=== PATIENT | female | born 1950 | race Caucasian/White ===

== ENCOUNTER → 2023-03-14 08:59 | Outpatient (REF) | payer MEDICARE, SELFPAY ==
[2023-03-14 11:50] LABS: % Basophils 0.6 % (0-2); % Eosinophils 1.5 % (0-6); % Immature Granulocytes 0.3 % (0-0.5); % Lymphocytes 23.5 % (20.5-51.1); % Monocytes 6.5 % (1.7-9.3); % Neutrophils 67.6 % (42.2-75.2); Absolute Eosinophils 0.1 10^3/uL (0-0.7); Absolute Lymphocytes 1.6 10^3/uL (1.2-3.4); Absolute Monocytes 0.4 10^3/uL (0.1-0.6); Absolute Neutrophils 4.6 10^3/uL (1.4-6.5); Hematocrit 39.9 % (37.0-47.0); Mean Corp Hgb Conc. 32.6 g/dL (33.0-37.0); Mean Corpuscular Hgb 27.5 pg (27.0-31.0); Mean Corpuscular Volume 84.4 fL (81.0-99.0); Nucleated Red Blood Cells % 0 %; Platelet Count 174 10^3/uL (130-400); Red Blood Cell Count 4.73 10^6/uL (4.20-5.40); Red Cell Dist. Width 14.5 % (11.5-14.5); White Blood Cell Count 6.8 10^3/uL (4.8-10.8)
[2023-03-14 12:29] LABS: Erythrocyte Sed Rate 16 mm/hour (0-20)
[2023-03-14 12:34] LABS: ALT (SGPT) 25 U/L (0-35); AST (SGOT) 23 U/L (14-36); Albumin 3.8 g/dl (3.5-5.0); Alkaline Phosphatase 50 U/L (38-126); Blood Urea Nitrogen 26 mg/dl (7-17); Calcium 9.5 mg/dl (8.4-10.2); Carbon Dioxide 29 mmol/L (22-30); Chloride 100 mmol/L (98-107); Glucose 111 mg/dl (70-99); HDL Cholesterol 62 mg/dl; LDL Cholesterol, Calculated 59 mg/dl; Sodium 137 mmol/L (135-145); Total Bilirubin 0.7 mg/dl (0.2-1.3); Total Cholesterol 141 mg/dl (50-199); Triglyceride 101 mg/dl (10-149); Very Low Density Lipoprotein 20 mg/dl (0-30); eGFR > 60.00
[2023-03-15 17:42] LABS: Rheumatoid Agglutinin Less Than 10 IU (<10 IU)
[2023-03-15 21:56] LABS: ANA, IgG Reflex to HEp-2 None Detected (None Detected)
[2023-03-15 22:03] LABS: CCP Antibody IgG/IgA 2 Units (0-19)
== END ==
LOC: HWLAB 08:59
PROVIDERS: ATTENDING PHYSICIAN Family Medicine
DX: R79.82 Elevated C-reactive protein (CRP) (principal); R73.03 Prediabetes; E78.00 Pure hypercholesterolemia, unspecified; M25.50 Pain in unspecified joint
CPT/HCPCS: 36415; 80053; 80061; 83036; 85025; 85652; 86038; 86140; 86200; 86430

== ENCOUNTER → 2023-07-31 09:26 | Outpatient (REF) | payer MEDICARE, SELFPAY ==
[2023-07-31 11:38] LABS: ALT (SGPT) 27 U/L (0-35); AST (SGOT) 29 U/L (14-36); Albumin 3.8 g/dl (3.5-5.0); Alkaline Phosphatase 58 U/L (38-126); Blood Urea Nitrogen 22 mg/dl (7-17); Calcium 9.4 mg/dl (8.4-10.2); Carbon Dioxide 29 mmol/L (22-30); Chloride 104 mmol/L (98-107); Glucose 112 mg/dl (70-99); HDL Cholesterol 64 mg/dl; LDL Cholesterol, Calculated 62 mg/dl; Potassium 4.3 mmol/L (3.5-5.1); Sodium 139 mmol/L (135-145); Total Bilirubin 0.7 mg/dl (0.2-1.3); Total Cholesterol 146 mg/dl (50-199); Total Protein 6.1 g/dl (6.3-8.2); Triglyceride 101 mg/dl (10-149); Very Low Density Lipoprotein 20 mg/dl (0-30); eGFR > 60.00
[2023-07-31 11:54] LABS: Glycohemoglobin (HgbA1c) 6.1 % (4.0-5.6)
[2023-07-31 11:57] LABS: Free T4 1.19 ng/dl (0.78-2.19)
[2023-07-31 12:25] LABS: Vitamin D, 25-OH*** 39.9 ng/mL (30-80)
[2023-08-02 22:57] LABS: Total T3 (Sendout) 71 ng/dL (80-200)
== END ==
LOC: HWLAB 09:26
PROVIDERS: ATTENDING PHYSICIAN Internal Medicine Endocrinology, Diabetes & Metabolism; FAMILY PHYSICIAN Family Medicine
DX: R73.03 Prediabetes (principal); E03.9 Hypothyroidism, unspecified; E78.2 Mixed hyperlipidemia; E06.3 Autoimmune thyroiditis; E88.810 Metabolic syndrome; E06.5 Other chronic thyroiditis; E55.9 Vitamin D deficiency, unspecified
CPT/HCPCS: 36415; 80053; 80061; 82306; 83036; 84439; 84443; 84480

== ENCOUNTER → 2023-08-14 06:21 | Day surgery (SDC) | payer MEDICARE, SELFPAY | LOC: GI 06:21 | PROVIDERS: ATTENDING PHYSICIAN Internal Medicine Gastroenterology | DX: Z12.11 Encounter for screening for malignant neoplasm of colon (principal); D12.2 Benign neoplasm of ascending colon; K63.89 Other specified diseases of intestine; K57.30 Diverticulosis of large intestine without perforation or abscess without bleeding; K64.8 Other hemorrhoids; K31.7 Polyp of stomach and duodenum; K31.89 Other diseases of stomach and duodenum; R49.0 Dysphonia; R12 Heartburn | CPT/HCPCS: 45380; 43239; 88305; 88342 ==

== ENCOUNTER → 2023-08-21 12:10 | Outpatient (REF) | payer MEDICARE, SELFPAY ==
[2023-08-21 15:13] LABS: Blood Urea Nitrogen 29 mg/dl (7-17); Calcium 9.6 mg/dl (8.4-10.2); Carbon Dioxide 27 mmol/L (22-30); Chloride 102 mmol/L (98-107); Glucose 110 mg/dl (70-99); Sodium 138 mmol/L (135-145); eGFR > 60.00
[2023-08-21 15:19] LABS: NT-proBNP 301 pg/ml
== END ==
LOC: HWLAB 12:10
PROVIDERS: ATTENDING PHYSICIAN Internal Medicine Cardiovascular Disease; FAMILY PHYSICIAN Family Medicine
DX: I50.30 Unspecified diastolic (congestive) heart failure (principal)
CPT/HCPCS: 36415; 80048; 83735; 83880

== ENCOUNTER → 2023-09-28 08:01 | Outpatient (REF) | payer MEDICARE, SELFPAY | LOC: HWRAD 08:01 | PROVIDERS: ATTENDING PHYSICIAN Internal Medicine Gastroenterology; FAMILY PHYSICIAN Family Medicine | DX: R93.3 Abnormal findings on diagnostic imaging of other parts of digestive tract (principal) | CPT/HCPCS: 74177; Q9967 ==

== ENCOUNTER → 2023-10-08 11:11 | Outpatient (REF) | payer MEDICARE, SELFPAY | LOC: DHSLP 11:11 | PROVIDERS: ATTENDING PHYSICIAN Internal Medicine Cardiovascular Disease; FAMILY PHYSICIAN Family Medicine | DX: G47.33 Obstructive sleep apnea (adult) (pediatric) (principal) | CPT/HCPCS: 95800 ==

== ENCOUNTER → 2023-10-09 09:04 | Outpatient (REF) | payer MEDICARE, SELFPAY | LOC: HWWDC 09:04 | PROVIDERS: ATTENDING PHYSICIAN Obstetrics & Gynecology; FAMILY PHYSICIAN Family Medicine | DX: Z12.31 Encounter for screening mammogram for malignant neoplasm of breast (principal) | CPT/HCPCS: 77063; 77067 ==

== ENCOUNTER → 2023-10-19 08:30 | Outpatient (REF) | payer MEDICARE, SELFPAY ==
[2023-10-19 10:30] LABS: Hematocrit 38.1 % (37.0-47.0); Hemoglobin 12.6 g/dL (12.0-16.0); Mean Corp Hgb Conc. 33.1 g/dL (33.0-37.0); Mean Corpuscular Hgb 27.1 pg (27.0-31.0); Mean Corpuscular Volume 81.9 fL (81.0-99.0); Mean Platelet Volume 11.3 fL (7.4-10.4); Platelet Count 216 10^3/uL (130-400); Red Blood Cell Count 4.65 10^6/uL (4.20-5.40); Red Cell Dist. Width 13.6 % (11.5-14.5); White Blood Cell Count 7.5 10^3/uL (4.8-10.8)
[2023-10-19 11:07] LABS: Blood Urea Nitrogen 30 mg/dl (7-17); Calcium 9.7 mg/dl (8.4-10.2); Carbon Dioxide 30 mmol/L (22-30); Chloride 101 mmol/L (98-107); Glucose 119 mg/dl (70-99); Potassium 4.1 mmol/L (3.5-5.1); Sodium 140 mmol/L (135-145); eGFR > 60.00
== END ==
LOC: SDSPAT 08:30
PROVIDERS: ATTENDING PHYSICIAN Surgery; FAMILY PHYSICIAN Family Medicine; OTHER PHYSICIAN Internal Medicine Cardiovascular Disease; OTHER PHYSICIAN Internal Medicine Gastroenterology
DX: Z01.818 Encounter for other preprocedural examination (principal)
CPT/HCPCS: 36415; 80048; 85027

== ENCOUNTER 2023-10-26 06:21 | Day surgery (SDC) | payer MEDICARE, SELFPAY ==
[2023-10-19 08:39] VITALS: BMI 42.8
[2023-10-26] VITALS (10 sets, daily range): BP systolic 110–155; BP diastolic 52–97; BMI 42.8
--- NOTE | 2023-10-26 09:54 | W.SUR.PREOP ---
Pre-Operative Surgical Note
-
I have examined this patient prior to the performance of the scheduled procedure.
The patient's condition is unchanged from the time of the current History and
Physical and the patient is able to undergo the scheduled procedure.
[2023-10-26] MEDS: TYLENOL 1000 MG PO (10:06)
[2023-10-26] MEDS: NORMOSOL-R/PLASMALYTE-A 1000 IV (10:06)
--- NOTE | 2023-10-26 11:48 | W.IMMPOSTOP ---
Addendum entered and electronically signed by Oscar Jenkins MD 10/26/23 11:58:
#[id number]
Original Note:
Surgical Immed Post Op Note
-
Primary Surgeon: Alice
Assisting Surgeon: Eric GUTIERREZ-student
Pre-op Diagnosis: Appendix mucocele
Post-op Diagnosis: Appendix mucocele
Procedure Performed: Laparoscopic appendectomy with partial cecectomy (preservation ileocecal valve)
Anesthesia Type: GETA +0.25% Marcaine
Specimen / Cultures: Appendix with portion of cecum
Estimated Blood Loss: 6 mL
Complications: None immediate
Operative Findings: Dilated appendix, normal cecum and terminal ileum. Appendectomy completed with 1 to 2 cm cuff of normal cecum essentially flush with ileocecal valve. Harmonic for mobilization and hemostasis with division of mesoappendix. Endo
JULIETA purple 60 mm / 45 mm staplers.
Plan: Routine postoperative care. DC home in p.m. versus tomorrow AM.
Patient Sister updated postoperatively via phone call
[2023-10-26] MEDS: NSS 1000 IV (13:30)
--- NOTE | 2023-10-26 13:41 | PTCARENOTE ---
Pt arrived to [facility] s/p lap appy. 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 IV infusing, on 2L NC satting 97%. Pt states pain mild, about 3/10 and does not want anything for pain at this time. Pt oriented to call cano and room, bed locked in lowest
position, call cano within reach.
[2023-10-26] MEDS: HYZAAR 100-12.5 TABLET 1 TAB PO (17:16)
[2023-10-26] MEDS: LOVENOX 40 MG SC (17:17)
[2023-10-26] MEDS: CLARITIN 10 MG PO (20:08)
[2023-10-26] MEDS: SINGULAIR 10 MG PO (21:21)
[2023-10-26] MEDS: NSS IV (23:19)
[2023-10-26] MEDS: AMBIEN 10 MG PO (23:19)
[2023-10-27 00:22] VITALS: BP 135/73
[2023-10-27] MEDS: SYNTHROID 137 MCG PO (06:16)
[2023-10-27 07:09] VITALS: BP 138/85
--- NOTE | 2023-10-27 09:04 | W.PN.GS2 ---
Today's Communication / Plan
-
d/c home
Assessment / Plan
-
73 yo female presenting for surgical management of appendix mucocele now POD #1 lap appi with partical cecectomy
AFVSS
Progressing well post operatively
--Continue diet
--Analgesics as needed
--Dispo planning
Subjective Data
-
Date of Service: October 27, 2023
Patient seen and examined at bedside with Dr. Yates. Denies n/v. Tolerating diet. Feels well overall. Minimal post op discomfort. Eager to go home.
Objective Data
-
Intake and Output
10/26/23 10/27/23 10/28/23
06:59 06:59 06:59
Intake Total 1660 / 1660
Balance 1660 / 1660
Intake:
Oral fluids 1560 / 1560
IV fluids (Total) 100 / 100
Normosal 100 / 100
Other:
Number of approximated MODERATE 1
amounts of urine
Vital Signs
Temp Pulse Resp BP Pulse Ox
98.3 F 72 14 138/85 97
10/27/23 07:09 10/27/23 07:09 10/27/23 07:09 10/27/23 07:09 10/27/23 07:09
Physical Exam
-
NAD
ABD soft, nt, nd
Incisions well approximated with intact glue, minimal ecchymosis
--- NOTE | 2023-10-27 09:06 | W.DS.TRANS ---
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
-
Discharge Instructions:
Sleep Apnea Risk Intermediate
Discharge Diagnosis/Procedures Appendix mucocele. Laparoscopic appendectomy
Additional Diets Smaller meals after surgery as abdominal
bloating and distention are common for the first
few days
Activity No strenuous activity
Driving Restrictions No driving for 24 hours
Bathing Restrictions OK to Shower
Wound Care Glue at surgical sites typically peels off in 2
to 3 weeks
Instructions:
Stand-Alone Forms:
Changes to Home Medications: No
Discharge Medications:
DC Medications w/original date entered in [facility]
coenzyme [id number] E 100 mg-5 unit capsule (Co Q-10 (with Vit E)) 100 mg PO HS 02/24/16
levothyroxine 137 mcg tablet (Synthroid) 137 mcg PO DAILY 02/24/16
meloxicam 7.5 mg tablet 7.5 mg PO DAILY 02/24/16
tolterodine 2 mg capsule,extended release 24 hr 2 mg PO DAILY 02/24/16
zolpidem 10 mg tablet 10 mg PO HSPRN PRN sleep 02/24/16
Calcium 500 + Magnesium 1 tab PO HS 02/03/19
cholecalciferol (vitamin D3) 25 mcg (1,000 unit) tablet 2,500 units PO DAILY 02/03/19
famotidine 10 mg tablet (Pepcid AC) 10 mg PO DAILY 02/03/19
riboflavin (vitamin B2) 100 mg tablet (Vitamin B-2) 400 mg PO HS 02/03/19
fexofenadine 180 mg tablet 180 mg PO DAILY 10/22/23
fluticasone 100 mcg-salmeterol 50 mcg/dose blistr powdr for inhalation (Advair Diskus) 1 inh inhalation BID 10/22/23
fluticasone propionate 50 mcg/actuation nasal spray,suspension 1 spray intranasal DAILY 10/22/23
glucosamine-chondroitin 250 mg-200 mg tablet (Osteo Bi-Flex) 1 tab PO DAILY 10/22/23
losartan 100 mg-hydrochlorothiazide 12.5 mg tablet 1 tab PO QPM 10/22/23
multivitamin 1 tab PO DAILY 10/22/23
rosuvastatin 10 mg tablet 10 mg PO DAILY 10/22/23
acetaminophen 500 mg tablet (Tylenol Extra Strength) 1,000 mg (2 x 500 mg) PO Q6HPRN PRN mild pain #1 tab 10/26/23
montelukast 10 mg tablet (Singulair) 10 mg PO HS 10/26/23
oxycodone 5 mg tablet 5 mg PO Q4HPRN PRN breakthrough/severe pain #5 tabs 10/26/23
polyethylene glycol 3350 17 gram/dose oral powder (Miralax) 4 g PO DAILY PRN Constipation #119 grams 10/26/23
Home Medication Changes
Pending Results: No
[2023-10-27] MEDS: CRESTOR 10 MG PO (09:09)
[2023-10-27] MEDS: DETROL LA 2 MG PO (09:09)
[2023-10-27] MEDS: PEPCID 20 MG PO (09:09)
--- NOTE | 2023-10-27 10:11 | CM ---
Met with pt at bedside
Pt reports she lives alone in a 2 story home with 2 steps to enter, 12 steps to 2nd fl
Active, independent
DME - none
SNF/HH - no past hx
PCP - Dr Coto
Pharm - [facility]
Has ride home with sister
Plan - anticipate home no needs
[2023-10-27] MEDS: NSS IV (10:18)
== END 2023-10-27 10:36 | disposition home or self-care (01) ==
LOC: SDS 06:21
PROVIDERS: ATTENDING PHYSICIAN Surgery
DX: D37.3 Neoplasm of uncertain behavior of appendix (principal); K38.8 Other specified diseases of appendix
CPT/HCPCS: 44970; 88304; 88307; 87070; C1776

== ENCOUNTER → 2023-12-14 16:23 | Outpatient (REF) | payer MEDICARE, SELFPAY | LOC: PAVMRI 16:23 | PROVIDERS: ATTENDING PHYSICIAN Family Medicine | DX: M54.16 Radiculopathy, lumbar region (principal); M54.41 Lumbago with sciatica, right side | CPT/HCPCS: 72148 ==

== ENCOUNTER → 2023-12-21 08:52 | Outpatient (REF) | payer MEDICARE, SELFPAY ==
[2023-12-21 12:36] LABS: ALT (SGPT) 33 U/L (0-35); AST (SGOT) 28 U/L (14-36); Albumin 4.1 g/dl (3.5-5.0); Alkaline Phosphatase 51 U/L (38-126); Blood Urea Nitrogen 30 mg/dl (7-17); Calcium 9.6 mg/dl (8.4-10.2); Carbon Dioxide 29 mmol/L (22-30); Chloride 102 mmol/L (98-107); Glucose 112 mg/dl (70-99); Potassium 4.2 mmol/L (3.5-5.1); Sodium 140 mmol/L (135-145); Total Cholesterol 151 mg/dl (50-199); Total Protein 6.2 g/dl (6.3-8.2); Triglyceride 119 mg/dl (10-149); Very Low Density Lipoprotein 23 mg/dl (0-30); eGFR > 60.00
[2023-12-21 12:38] LABS: Glycohemoglobin (HgbA1c) 5.9 % (4.0-5.6)
[2023-12-21 12:49] LABS: HDL Cholesterol 65 mg/dl; LDL Cholesterol, Calculated 63 mg/dl
[2023-12-21 12:50] LABS: % Basophils 0.6 % (0-2); % Eosinophils 2.1 % (0-6); % Immature Granulocytes 0.3 % (0-0.5); % Lymphocytes 24.9 % (20.5-51.1); % Monocytes 5.8 % (1.7-9.3); % Neutrophils 66.3 % (42.2-75.2); Absolute Eosinophils 0.1 10^3/uL (0-0.7); Absolute Lymphocytes 1.6 10^3/uL (1.2-3.4); Absolute Monocytes 0.4 10^3/uL (0.1-0.6); Absolute Neutrophils 4.1 10^3/uL (1.4-6.5); Hematocrit 39.4 % (37.0-47.0); Hemoglobin 12.5 g/dL (12.0-16.0); Mean Corp Hgb Conc. 31.7 g/dL (33.0-37.0); Mean Corpuscular Hgb 26.4 pg (27.0-31.0); Mean Corpuscular Volume 83.3 fL (81.0-99.0); Mean Platelet Volume 12.2 fL (7.4-10.4); Nucleated Red Blood Cells % 0 %; Platelet Count 190 10^3/uL (130-400); Red Blood Cell Count 4.73 10^6/uL (4.20-5.40); Red Cell Dist. Width 13.9 % (11.5-14.5); White Blood Cell Count 6.2 10^3/uL (4.8-10.8)
[2023-12-21 12:58] LABS: TSH 0.15 uIU/ml (0.47-4.68)
[2023-12-23 05:17] LABS: IgG Subclass 1 205 mg/dL (240-1118); IgG Subclass 2 218 mg/dL (124-549); IgG Subclass 3 46 mg/dL (21-134); IgG Subclass 4 36 mg/dL (1-123)
[2023-12-23 23:14] LABS: IgA 88 mg/dl (70-400); IgG 536 mg/dl (700-1600); IgM 75 mg/dl (40-230)
== END ==
LOC: HWLAB 08:52
PROVIDERS: ATTENDING PHYSICIAN Internal Medicine; FAMILY PHYSICIAN Family Medicine
DX: D84.9 Immunodeficiency, unspecified (principal); E78.2 Mixed hyperlipidemia; E03.9 Hypothyroidism, unspecified; R73.03 Prediabetes
CPT/HCPCS: 36415; 80053; 80061; 82784; 82787; 83036; 84443; 85025

== ENCOUNTER → 2024-01-16 11:03 | Outpatient (REF) | payer MEDICARE, SELFPAY | LOC: HWRCS 11:03 | PROVIDERS: ATTENDING PHYSICIAN Internal Medicine Cardiovascular Disease | DX: I34.0 Nonrheumatic mitral (valve) insufficiency (principal); I35.1 Nonrheumatic aortic (valve) insufficiency | CPT/HCPCS: 93306 ==

== ENCOUNTER → 2024-02-19 12:53 | Outpatient (REF) | payer MEDICARE, SELFPAY | LOC: MRI 3T 12:53 | PROVIDERS: ATTENDING PHYSICIAN Family Medicine | DX: K86.9 Disease of pancreas, unspecified (principal) | CPT/HCPCS: 74183; A9575 ==

== ENCOUNTER → 2024-04-09 09:05 | Outpatient (REF) | payer MEDICARE, SELFPAY ==
[2024-04-09 12:48] LABS: % Basophils 0.3 % (0-2); % Eosinophils 1.9 % (0-6); % Immature Granulocytes 0.3 % (0-0.5); % Monocytes 7.3 % (1.7-9.3); % Neutrophils 68.2 % (42.2-75.2); Absolute Eosinophils 0.1 10^3/uL (0-0.7); Absolute Lymphocytes 1.4 10^3/uL (1.2-3.4); Absolute Monocytes 0.5 10^3/uL (0.1-0.6); Absolute Neutrophils 4.3 10^3/uL (1.4-6.5); Hematocrit 38.5 % (37.0-47.0); Hemoglobin 12.3 g/dL (12.0-16.0); Mean Corp Hgb Conc. 31.9 g/dL (33.0-37.0); Mean Corpuscular Hgb 26.2 pg (27.0-31.0); Mean Corpuscular Volume 81.9 fL (81.0-99.0); Mean Platelet Volume 11.6 fL (7.4-10.4); Nucleated Red Blood Cells % 0 %; Platelet Count 171 10^3/uL (130-400); Red Cell Dist. Width 14.4 % (11.5-14.5); White Blood Cell Count 6.3 10^3/uL (4.8-10.8)
[2024-04-09 13:00] LABS: ALT (SGPT) 29 U/L (0-35); AST (SGOT) 25 U/L (14-36); Albumin 4.2 g/dl (3.5-5.0); Alkaline Phosphatase 63 U/L (38-126); Blood Urea Nitrogen 30 mg/dl (7-17); Calcium 9.6 mg/dl (8.4-10.2); Carbon Dioxide 28 mmol/L (22-30); Chloride 103 mmol/L (98-107); Glucose 119 mg/dl (70-99); HDL Cholesterol 59 mg/dl; LDL Cholesterol, Calculated 50 mg/dl; Potassium 3.9 mmol/L (3.5-5.1); Sodium 139 mmol/L (135-145); Total Bilirubin 1.1 mg/dl (0.2-1.3); Total Cholesterol 124 mg/dl (50-199); Total Protein 6.2 g/dl (6.3-8.2); Triglyceride 78 mg/dl (10-149); Very Low Density Lipoprotein 15 mg/dl (0-30); eGFR > 60.00
[2024-04-09 13:27] LABS: Glycohemoglobin (HgbA1c) 6.1 % (4.0-5.6)
[2024-04-09 13:29] LABS: TSH < 0.02 uIU/ml (0.47-4.68)
== END ==
LOC: HWLAB 09:05
PROVIDERS: ATTENDING PHYSICIAN Family Medicine; REFERRING PHYSICIAN Internal Medicine Endocrinology, Diabetes & Metabolism
DX: E78.2 Mixed hyperlipidemia (principal); R73.03 Prediabetes; E03.9 Hypothyroidism, unspecified
CPT/HCPCS: 36415; 80053; 80061; 83036; 84443; 85025

== ENCOUNTER → 2024-07-18 08:57 | Outpatient (REF) | payer MEDICARE, SELFPAY ==
[2024-07-18 11:50] LABS: ALT (SGPT) 26 U/L (0-35); AST (SGOT) 24 U/L (14-36); Albumin 3.9 g/dl (3.5-5.0); Alkaline Phosphatase 53 U/L (38-126); Blood Urea Nitrogen 22 mg/dl (7-17); Calcium 9.2 mg/dl (8.4-10.2); Carbon Dioxide 29 mmol/L (22-30); Chloride 105 mmol/L (98-107); Glucose 113 mg/dl (70-99); HDL Cholesterol 55 mg/dl; LDL Cholesterol, Calculated 55 mg/dl; Potassium 3.9 mmol/L (3.5-5.1); Sodium 138 mmol/L (135-145); Total Bilirubin 1.3 mg/dl (0.2-1.3); Total Cholesterol 127 mg/dl (50-199); Triglyceride 85 mg/dl (10-149); Very Low Density Lipoprotein 17 mg/dl (0-30); eGFR > 60.00
[2024-07-18 17:24] LABS: TSH Reflex To Free T4 0.04 uIU/ml (0.47-4.68)
[2024-07-18 17:54] LABS: Free T4 1.74 ng/dl (0.78-2.19)
== END ==
LOC: HWLAB 08:57
PROVIDERS: ATTENDING PHYSICIAN Family Medicine
DX: E03.9 Hypothyroidism, unspecified (principal); I10 Essential (primary) hypertension; E78.2 Mixed hyperlipidemia; R73.03 Prediabetes
CPT/HCPCS: 36415; 80053; 80061; 83036; 84439; 84443

== ENCOUNTER → 2024-09-16 08:40 | Outpatient (REF) | payer MEDICARE, SELFPAY ==
[2024-09-16 13:17] LABS: TSH < 0.02 uIU/ml (0.47-4.68)
== END ==
LOC: HWLAB 08:40
PROVIDERS: ATTENDING PHYSICIAN Family Medicine
DX: E03.9 Hypothyroidism, unspecified (principal)
CPT/HCPCS: 36415; 84443

== ENCOUNTER → 2024-10-16 10:48 | Outpatient (REF) | payer MEDICARE, SELFPAY | LOC: MRI 3T 10:48 | PROVIDERS: ATTENDING PHYSICIAN Internal Medicine Gastroenterology; FAMILY PHYSICIAN Family Medicine | DX: K86.2 Cyst of pancreas (principal) | CPT/HCPCS: 74183; A9575 ==

== ENCOUNTER → 2024-10-30 09:04 | Outpatient (REF) | payer MEDICARE, SELFPAY ==
[2024-10-30 12:51] LABS: Hematocrit 38.7 % (37.0-47.0); Hemoglobin 12.5 g/dL (12.0-16.0); Mean Corp Hgb Conc. 32.3 g/dL (33.0-37.0); Mean Corpuscular Volume 80.8 fL (81.0-99.0); Nucleated Red Blood Cells % 0 %; Platelet Count 177 10^3/uL (130-400); Red Cell Dist. Width 14.0 % (11.5-14.5)
[2024-10-30 13:07] LABS: ALT (SGPT) 27 U/L (0-35); AST (SGOT) 24 U/L (14-36); Albumin 4.1 g/dl (3.5-5.0); Alkaline Phosphatase 57 U/L (38-126); Blood Urea Nitrogen 27 mg/dl (7-17); Calcium 10.0 mg/dl (8.4-10.2); Carbon Dioxide 29 mmol/L (22-30); Chloride 103 mmol/L (98-107); Glucose 124 mg/dl (70-99); HDL Cholesterol 61 mg/dl; LDL Cholesterol, Calculated 74 mg/dl; Potassium 4.0 mmol/L (3.5-5.1); Sodium 137 mmol/L (135-145); Total Protein 6.4 g/dl (6.3-8.2); Very Low Density Lipoprotein 28 mg/dl (0-30); eGFR > 60.00
[2024-10-30 13:45] LABS: TSH 0.26 uIU/ml (0.47-4.68)
[2024-10-30 14:26] LABS: Glycohemoglobin (HgbA1c) 6.1 % (4.0-5.6)
== END ==
LOC: HWLAB 09:04
PROVIDERS: ATTENDING PHYSICIAN Family Medicine; REFERRING PHYSICIAN Internal Medicine
DX: E03.9 Hypothyroidism, unspecified (principal); R73.03 Prediabetes; E78.2 Mixed hyperlipidemia; D80.6 Antibody deficiency with near-normal immunoglobulins or with hyperimmunoglobulinemia
CPT/HCPCS: 36415; 80053; 80061; 82784; 83036; 84439; 84443; 85025

== ENCOUNTER → 2025-01-22 14:22 | Outpatient (REF) | payer MEDICARE, SELFPAY ==
[2025-01-23 17:34] LABS: Hematocrit 39.7 % (37.0-47.0); Hemoglobin 12.1 g/dL (12.0-16.0); Mean Corp Hgb Conc. 30.5 g/dL (33.0-37.0); Mean Corpuscular Volume 86.5 fL (81.0-99.0); Nucleated Red Blood Cells % 0 %; Platelet Count 192 10^3/uL (130-400); Red Cell Dist. Width 15.1 % (11.5-14.5)
[2025-01-23 17:48] LABS: Iron 81 ug/dl (37-170)
[2025-01-23 17:58] LABS: Total Iron Binding Capacity 364 ug/dl (265-497)
[2025-01-23 18:24] LABS: Ferritin 35.7 ng/ml (11.1-264.0)
== END ==
LOC: CLAB 14:22
PROVIDERS: ATTENDING PHYSICIAN Family Medicine
DX: E03.9 Hypothyroidism, unspecified (principal); R71.8 Other abnormality of red blood cells
CPT/HCPCS: 36415; 82728; 83540; 83550; 84443; 85025